=== PATIENT | female | born 1975 ===

== ENCOUNTER 2019-07-01 05:00 | Day surgery (SDC) | payer OTHER ==
[~2019-07-01 05:00] MED LIST: ARMOUR THYROID120 M1; COZAAR50 MG PO; EPIDIOLEX100 MG/1 M PO; QUESTRAN PACKET4 GM; SYNTHROID125 MCG PO; ZOCOR20 MG PO
[2019-07-01] MEDS ORDERED: Tylenol #3 PO (12:19)
[2019-07-01] MEDS ORDERED: MORGIDOX100 MG PO (12:19)
== END 2019-07-01 15:20 | disposition home or self-care (01) ==
LOC: CIR.AMB 05:00 → ADM 08:30 → CIR.AMB 15:20
DX: D25.0 Submucous leiomyoma of uterus (principal); N84.0 Polyp of corpus uteri